=== PATIENT | female | born 1985 | race Caucasian/White ===

== ENCOUNTER 2023-09-18 11:41 | Emergency (ER) | payer OTHER ==
[~2023-09-18] VITALS: Ht 154.9 cm; Wt 104.5 kg
[2023-09-18 11:45] VITALS: TEMP 98.2
[2023-09-18 12:26] LABS: ALANINE AMINOTRANSFERASE 30 U/L (0-55); ALBUMIN 3.5 g/dL (3.5-5.0); ALKALINE PHOSPHATASE 91 U/L (40-150); ANION GAP 9 mmol/L (7-16); AST,SGOT 23 U/L (5-34); BILIRUBIN,TOTAL 0.3 mg/dL (0.2-1.2); BLOOD UREA NITROGEN 8 mg/dL (7-19); CALCIUM 8.8 mg/dL (8.4-10.2); CHLORIDE 108 mEq/L (98-107); CREATININE, serum 0.84 mg/dL (0.57-1.11); GLUCOSE 90 mg/dL (70-99); LIPASE 20 U/L (8-78); POTASSIUM 4.1 mEq/L (3.5-4.5); SODIUM 139 mEq/L (136-145); TOTAL PROTEIN 7.3 g/dl (6.2-8.1)
[2023-09-18 12:30] LABS: BASO # 0.1 K/mm3 (0.0-0.2); EOS # 0.1 K/mm3 (0.0-0.7); GRAN # 4.8 K/mm3 (1.4-6.5); GRAN % 59.5 % (42.2-75.2); HEMOGLOBIN 12.7 g/dl (12.5-16.0); LYMPH # 2.4 K/mm3 (1.2-3.4); LYMPH % 30.3 % (20.0-51.0); MEAN CELL VOLUME 81 fl (80.0-100.0); MEAN CORPUSCULAR HEMOGLOBIN 26 pg (27-31); MEAN CORPUSCULAR HGB CONC 32 g/dl (33.0-37.0); MEAN PLATELET VOLUME 10.8 fl (7.4-10.4); MONO # 0.5 K/mm3 (0.1-0.6); MONO % 6.8 % (1.7-9.3); PLATELET COUNT 245 K/mm3 (130-400); RED BLOOD COUNT 4.96 M/mm3 (4.10-5.30); REDCELL DISTRIBUTION WIDTH-CV 14.7 % (11.5-14.5)
[2023-09-18 12:36] LABS: TROPONIN-I < 0.010 ng/mL (0.00-0.033)
[2023-09-18] MEDS ORDERED: Ketorolac 30 MG/ML VIAL IV ONE (13:15)
[2023-09-18] MEDS ORDERED: Morphine 4 MG/ML VIAL IV ONE (13:30)
[2023-09-18] MEDS ORDERED: Sucralfate Susp 1 GM/10 ML UD PO ONE (13:30)
[2023-09-18] MEDS ORDERED: NORCO 325 MG-51 TAB PO (14:09)
[2023-09-18 14:23] VITALS: BP 145/85; PULSE 65
[2023-09-21] MEDS ORDERED: NEXIUM 40MG40 MG PO (07:06)
[2023-09-21] MEDS ORDERED: WELLBUTRIN SR150 M1 PO (07:06)
[2023-09-21] MEDS ORDERED: SYNTHROID0.2 MG/TAB PO (07:07)
[2023-09-21] MEDS ORDERED: ATARAX 25MG25 MG/TAB PO (07:07)
[2023-09-21] MEDS ORDERED: ZOLOFT 100MG100 MG PO (07:07)
== END 2023-09-18 14:23 | disposition home or self-care (01) ==
LOC: COL.ER 11:41
PROVIDERS: Physician Assistant
DX: R07.2 Precordial pain (principal)
CPT/HCPCS: J1885; J2270

== ENCOUNTER → 2023-09-21 | Day surgery (SDC) | payer OTHER ==
[~2023-09-21] VITALS: Ht 154.9 cm; Wt 103.2 kg
[~2023-09-21] MED LIST: ATARAX 25MG25 MG/TAB PO; LR 1,000 ML IV SCH; Lidocaine PF 2% (20 MG/ML) 5 ML VIAL ONE; NEXIUM 40MG40 MG PO; NORCO 325 MG-51 TAB PO; Ondansetron 4 MG/2 ML VIAL IV PRN; SYNTHROID0.2 MG/TAB PO; WELLBUTRIN SR150 M1 PO; ZOLOFT 100MG100 MG PO
[2023-09-21 07:35] VITALS: BP 124/92; PULSE 73; TEMP 97.6
[2023-09-21 08:35] VITALS: BP 141/86; PULSE 68; TEMP 97.5
[2023-09-21 08:50] VITALS: BP 127/87; PULSE 60
[2023-09-21 09:05] VITALS: BP 134/90; PULSE 66
--- NOTE | 2023-09-21 09:10 | NUR ---
0835 RETURNS TO ROOM 2 PER CART. AWAKE, ALERT. RESP UNLABORED. AMBULATES TO RECLINER WITH STAND BY ASSIST. DENIES NAUSEA, ABD/CHEST PAIN OR DYSPHAGIA. VITAL SIGNS OBTAINED. CALL LIGHT AT SIDE 0850 TOLERATES PO JUICE WITHOUT NAUSEA. SWALLOWS WITHOUT DIFFICULTY 0853 DR. FRANK HERE TO VISIT WITH PATIENT 0900 DISCHARGE INSTRUCTIONS REVIEWED. PATIENT VERBALIZES UNDERSTANDING. COPY PROVIDED IN DISCHARGE FOLDER. 0905 DRESSES SELF
== END ==
LOC: SDCO 06:21
DX: K21.9 Gastro-esophageal reflux disease without esophagitis (principal); K44.9 Diaphragmatic hernia without obstruction or gangrene
CPT/HCPCS: J2704; J7120